=== PATIENT | female | born 1950 | race Caucasian/White ===

== ENCOUNTER → 2017-02-13 | Outpatient (CLI) | payer OTHER ==
[~2017-02-13] MED LIST: CALCTAB7 PO; MULT-513 PO; NRN100 PO; OMEP20CA9 PO
--- NOTE | 2017-02-13 15:43 | MAMMOGRAPHY REPORT ---
BILATERAL DIGITAL SCREENING MAMMOGRAM WITH CAD: 02/13/2017 CLINICAL HISTORY: Routine screening. Patient has no complaints. TECHNIQUE: Bilateral CC and MLO views were obtained. Current study was also evaluated with a Compute r Aided Detection (CAD) system. COMPARISON: Comparison is made to exams dated: 11/02/2014 mammogram, 07/21/2013 mammogram, 02/20/2010 ammogram - [facility], 02/17/2009, 08/26/2008, and 02/23/2008. BREAST COMPOSITION: There are scattered areas of fibroglandular density in both breasts. FINDINGS: No suspicious mass, architectural distortion or cluster of microcalcifications is seen. IMPRESSION: ACR BI-RADS CATEGORY 1: NEGATIVE There is no mammographic evidence of malignancy. A 1 year screening mammogram is recommended. The pa tient will receive written notification of the results. Approximately 10% of breast cancers are not detected with mammography. A negative mammographic report should not delay biopsy if a clinically suggestive mass is present. Shari Meza M.D. ay/:02/13/2017 14:10:53 Chainstitch Seat Joiner: Karena PEREZ(Curry)(Perez)([place]), [facility] letter sent: Normal 1/2 BI-RADS Code: ACR BI-RADS Category 1: Negative
== END | disposition home or self-care (01) ==
LOC: C.MAMM 13:34
PROVIDERS: ATTEND Internal Medicine
DX: Z12.31 Encounter for screening mammogram for malignant neoplasm of breast (principal)

== ENCOUNTER 2018-08-04 11:15 | Observation (INO) ==
[2018-08-04] MEDS ORDERED: ASPIRIN CHEW 324 MG PO STA (11:54)
[2018-08-04] MEDS ORDERED: NITROGLYCERIN SL 0.4 MG/TAB TAB SL STA (11:54)
[2018-08-04 12:10] LABS: Basophils # (auto) 0.07 K/uL (0-0.2); Basophils % (auto) 1.2 %; Eosinophils # (auto) 0.11 K/uL (0-0.5); Eosinophils % (auto) 1.9 %; Hematocrit (blood only) 44.2 % (37-47); Hemoglobin 14.8 g/dL (12.0-16.0); Immature Granulocytes # (auto) 0.01 K/uL (0.00-0.02); Immature Granulocytes % (auto) 0.2 %; Lymphocytes % (auto) 34.3 %; Mean Corpuscular Hgb Conc 33.5 g/dL (32-36); Mean Corpuscular Volume 88.9 fL (80-100); Mean Platelet Volume 10.7 fL (7.4-10.4); Monocytes # (auto) 0.28 K/uL (0.11-0.59); Monocytes % (auto) 4.8 %; Neutrophils # (auto) 3.36 K/uL (1.4-6.5); Neutrophils % (auto) 57.6 %; Platelet Count 198 K/uL (130-400); RDW Standard Deviation 42.3 fL (36.4-46.3); Red Blood Count 4.97 M/uL (4.2-5.4); White Blood Count 5.83 K/uL (4.8-10.8)
--- NOTE | 2018-08-04 12:12 | XRay Report ---
XR chest 1V portable CLINICAL HISTORY: Atypical chest pain COMPARISON STUDY: 07/31/2018 FINDINGS: The cardiac and mediastinal contours are normal. There is no evidence of focal pulmonary co nsolidation. There is no evidence of failure. No pleural effusions are visualized.[ IMPRESSION: No active disease in the chest. Electronically signed by: Moises Peña M.D. 08/04/2018 12:11 PM
[2018-08-04 12:24] LABS: Alanine Aminotransferase 20 U/L (12-78); Albumin Level 4.2 gm/dl (3.4-5.0); Aspartate Aminotransferase 14 U/L (15-37); BUN Creatinine Ratio 12.9 (10-20); Blood Urea Nitrogen 11 mg/dl (7-18); Calcium 8.7 mg/dl (8.5-10.1); Carbon Dioxide 30 mmol/L (21-32); Chloride 105 mmol/L (98-107); Creatinine Clr Calc Pharmacy 75.9 ml/min; Est GFR (African American) 81.6; Est GFR (Non-African American) 70.4; Glucose 77 mg/dl (70-99); Potassium 3.8 mmol/L (3.5-5.1); Sodium 139 mmol/L (136-145)
[2018-08-04 12:29] LABS: Albumin Globulin Ratio 1.2 (0.9-2); Alkaline Phosphatase 112 U/L (45-117); Bilirubin,Total 0.6 mg/dl (0.2-1); Creatine Kinase 56 U/L (26-192); Creatine Kinase MB < 1.0 ng/ml (0.5-3.6); Globulin 3.4 gm/dl (2.5-4.0); Total Protein 7.6 gm/dl (6.4-8.2); Troponin I < 0.015 ng/ml (0-0.045)
--- NOTE | 2018-08-04 13:50 | History & Physical Report ---
Date of Service August 04, 2018 Assessment & Plan (1) Chest pain: This is a 68yo F with a PMH of GERD, prediabetes and sciatica who presents with intermittent chest pain for the past several weeks. -Atypical presentation with hour-long chest pressure with radiation to bilateral shoulders -Had a normal stress test performed 6 years ago, no work up since -No history of HTN, HLD or DM II. + Family history of HD (father) -Hemodynamically stable, no EKG changes, CXR without acute abnormalities -Initial troponin negative. Continue trending -Discussed with cardiology. Will make NPO after midnight for exercise stress echo in AM (if trops remain negative x 3) -SL NTG and GI cocktail PRN pain -Fasting lipid panel and a1c in AM -Continue baby aspirin daily -Repeat EKG in am (2) Prediabetes: Most recent a1c of 5.1 in 2014. Repeat a1c pending (3) GERD (gastroesophageal reflux disease): Continue Ranitidine and omeprazole (4) Sciatica: Continue home dose Gabapentin and Mobic PRN pain DVT Ppx: SQ Lovenox Code status: FULL PCP: [facility] Dispo: Plan to return home once medically stable. Patient seen in collaboration with Dr. Dowell. Please see addendum. History of Present Illness Chief Complaint: chest pain Primary Care Provider: Milly Dowell MD This is a 68yo F with a PMH of GERD, prediabetes and sciatica who presents with intermittent chest pain for the past several weeks. Was evaluated in the ER last week and on-call technology risk intern recommended patient be observed overnight with stress test in the morning, but patient left the ER AMA. Was feeling well over the past few days until she experienced another episode of chest pain this morning while baking in her kitchen. Describes pain as left-sided chest pressure with radiation to bilateral shoulders, associated with shortness of breath, dizziness and nausea. Episodes lasted for an hour and then resolved. Denies history of coronary artery disease or previous NC. Underwent a normal stress test 6 years ago and was diagnosed with GERD at that time. Takes omeprazole regularly but was reportedly told to switch to Zantac in ER last week. Denies eating fatty or acidic foods and tries to limit caffeine. Takes Mobic PRN for sciatica. Father with history of coronary artery disease. Is a pre-diabetic with A1c of 5.1 in 2014. Denies fever, chills, lightheadedness, headache, chest pain, palpitations, SOB, wheezing, abdominal pain, nausea, vomiting, dysuria, diarrhea, constipation or lower extremity swelling. PCP is Dr. Dowell. Allergies Allergy/AdvReac Type Severity Reaction Status Date / Time No Known Allergies Allergy Unverified 08/04/18 11:57 Home Medications Home Medications Medication Instructions Recorded Confirmed Type calcium carbonate [Calcium 600] 600 mg PO DAILY 07/31/18 08/04/18 History gabapentin 100 mg PO QAM 07/31/18 08/04/18 History gabapentin 200 mg PO QPM 07/31/18 08/04/18 History meloxicam 7.5 mg PO DAILY PRN 07/31/18 08/04/18 History ranitidine HCl [Zantac] 150 mg PO BID #28 tab 07/31/18 08/04/18 Rx aspirin 81 mg PO DAILY 08/04/18 08/04/18 History omeprazole 20 mg PO DAILY 08/04/18 08/04/18 History Past Med/Surg History Medical History Prediabetes (Chronic) GERD (gastroesophageal reflux disease) (Chronic) Sciatica (Chronic) Surgical History H/O colonoscopy (Resolved) Family History Father Heart disease Mother Crohns disease Social History marital status: / Current Living Situation: Alone current occupational status: retired 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 Other Information That Helps Us Care for You: No Feels Safe at Home: Yes Smoking Status: Former smoker Hx Alcohol Use: Yes Alcohol type: wine Alcohol Intake Frequency: holidays/ special occasions only Hx Substance Use: No Beliefs That Will Affect Care: None Preferred Language: Albanian Review of Systems All systems reviewed & are unremarkable except as noted in HPI & below Physical Exam 2 Vital Signs (Past 24 Hours): Last Vital Signs Temp 36.7 C 08/04/18 11:20 Pulse 79 08/04/18 12:52 Resp 18 08/04/18 12:52 BP 131/79 08/04/18 12:52 Pulse Ox 98 08/04/18 12:52 Physical Exam: General Appearance: WD/WN, no apparent distress, reading a book Head: normocephalic, atraumatic Eyes: normal inspection, PERRL, EOMI ENT: hearing grossly normal, pharynx normal (moist mucous membranes) Neck: supple, no JVD, no adenopathy Respiratory/Chest: No chest wall tenderness to palpation. Lungs clear to auscultation. No wheezes, rales or rhonci. No respiratory distress or accessory muscle use Cardiovascular: regular rate, rhythm, no murmur, normal peripheral pulses Abdomen/GI: normal bowel sounds, soft, non-tender to palpation Extremities/Musculoskelatal: normal inspection, no calf tenderness, normal capillary refill, no pedal edema Neurologic/Psych: alert, normal mood/affect, oriented x 3 Skin: normal color, warm/dry Results & Data Laboratory Results Short CBC 08/04/18 Range/Units 11:39 WBC 5.83 (4.8-10.8) K/uL Hgb 14.8 (12.0-16.0) g/dL Hct 44.2 (37-47) % Plt Count 198 (130-400) K/uL BMP 08/04/18 11:39 Sodium 139 Potassium 3.8 Chloride 105 Carbon Dioxide 30 BUN 11 Creatinine 0.86 Glucose 77 Calcium 8.7 Cardiac Enzymes 08/04/18 Range/Units 11:39 Total Creatine Kinase 56 (26-192) U/L CK-MB (CK-2) < 1.0 (0.5-3.6) ng/ml Troponin I < 0.015 (0-0.045) ng/ml Liver Function 08/04/18 Range/Units 11:39 Total Bilirubin 0.6 (0.2-1) mg/dl AST 14 L (15-37) U/L ALT 20 (12-78) U/L Alkaline Phosphatase 112 (45-117) U/L Albumin 4.2 (3.4-5.0) gm/dl Diagnostic Findings CXR: IMPRESSION: No active disease in the chest. ECG Rhythm: normal sinus Code Status & VTE Plan Code Status FULL VTE Prophylaxis Plan VTE Prophylaxis will be ordered: Yes Supervising Physician Co-Signing Physician Notes I saw this patient with the physician medical administrative assistant, I participated in the history, physical, review of systems, and physical exam. I reviewed the medications with the patient and the physician medical administrative assistant and helped reconcile the medications. I helped take a detailed family and social history as well. I formulated the assessment and plan personally with the physician medical administrative assistant and went over it with the patient. _ (1) Chest pain Chest pain type: unspecified Ischemic chest pain type: Qualified Code(s): R07.9 - Chest pain, unspecified
[2018-08-04] MEDS ORDERED: POLYETHYLENE (MIRALAX) 17 GM PACK PO PRN (15:56)
[2018-08-04] MEDS ORDERED: ACETAMINOPHEN 325 MG TAB PO PRN (15:56)
[2018-08-04] MEDS ORDERED: ALUMINUM/MAGNESIUM SUSP 72 ML, LIDOCAINE HCL VISCOUS 2% 24 ML, BARCODE IDENTIFIER 1 EA PO PRN (15:56)
[2018-08-04] MEDS ORDERED: ONDANSETRON INJ 2 MG/ML 2 ML VIAL IV PRN (15:56)
[2018-08-04] MEDS ORDERED: MELOXICAM 7.5 MG TAB PO PRN (15:56)
[2018-08-04] MEDS ORDERED: NITROGLYCERIN SL 0.4 MG/TAB TAB SL PRN (15:56)
[2018-08-04] MEDS ORDERED: ENOXAPARIN INJ 40 MG/0.4 ML SYR SQ SCH (17:00)
[2018-08-04] MEDS ORDERED: GABAPENTIN 100 MG CAP PO SCH (21:00)
[2018-08-05 05:44] LABS: Hematocrit (blood only) 39.9 % (37-47); Hemoglobin 13.3 g/dL (12.0-16.0); Mean Corpuscular Hgb Conc 33.3 g/dL (32-36); Mean Corpuscular Volume 88.5 fL (80-100); Platelet Count 156 K/uL (130-400); RDW Coefficient of Variation 12.9 % (11.5-14.5); RDW Standard Deviation 41.3 fL (36.4-46.3); Red Blood Count 4.51 M/uL (4.2-5.4)
[2018-08-05 06:10] LABS: BUN Creatinine Ratio 15.6 (10-20); Calcium 8.7 mg/dl (8.5-10.1); Creatinine Clr Calc Pharmacy 72.3 ml/min; Est GFR (African American) 77.2; Est GFR (Non-African American) 66.6; Potassium 4.1 mmol/L (3.5-5.1)
[2018-08-05] MEDS ORDERED: CALCIUM 600MG + VIT D 400 IU TAB PO SCH (09:00)
[2018-08-05] MEDS ORDERED: ASPIRIN 81 MG ECTAB PO SCH (09:00)
[2018-08-05] MEDS ORDERED: GABAPENTIN 100 MG CAP PO SCH (09:00)
[2018-08-05] MEDS ORDERED: PANTOprazole 40 MG TAB PO SCH (09:00)
--- NOTE | 2018-08-06 07:05 | Emergency Department Note ---
Entered by Silke Holliday acting as a scribe for History of Present Illness General Chief complaint: Chest Pain Stated complaint: CHEST PAIN , DIFFICULT TO BREATH Time Seen by Provider: 08/04/18 11:31 Source: patient History of Present Illness Onset (ago): hour(s) 2 Location: chest Radiation: extremity (shoulder) Pain Consistency: + other (episode) Maximum Pain Intensity: 6 Quality: + other ("spiking") Associated symptoms: + denies other symptoms (abdominal pain), + shortness of breath and + other (dizziness) The patient is a 68 year old female who presents to the Emergency Room with complaints of an episode of chest pain starting 2 hours ago. The patient states that she was here 4 days ago with similar symptoms. She states that they wanted her to stay and have a stress test done. She reports that she did not want to stay as she wanted to go home and sleep and she doesnt sleep well in hospitals. She states that she felt fine when she went home and has until after breakfast today. She states that today she started having the chest pain again. She reports that shortly after it started she was short of breath and dizzy. She notes that she has noticed a spiking in her left shoulder. The patient denies abdominal pain. She notes that she did take a baby Aspirin this morning. She notes that after leaving her last visit she scheduled an appointment with her PCP for tomorrow. Home Medications Home Medications Medication Instructions Recorded Confirmed Type calcium carbonate [Calcium 600] 600 mg PO DAILY 07/31/18 08/04/18 History gabapentin 100 mg PO QAM 07/31/18 08/04/18 History gabapentin 200 mg PO QPM 07/31/18 08/04/18 History meloxicam 7.5 mg PO DAILY PRN 07/31/18 08/04/18 History ranitidine HCl [Zantac] 150 mg PO BID #28 tab 07/31/18 08/04/18 Rx aspirin 81 mg PO DAILY 08/04/18 08/04/18 History omeprazole 40 mg PO DAILY #30 cap 08/05/18 Rx Allergies Allergy/AdvReac Type Severity Reaction Status Date / Time No Known Allergies Allergy Unverified 08/04/18 11:57 Past Med/Surg History Medical History Prediabetes (Chronic) GERD (gastroesophageal reflux disease) (Chronic) Sciatica (Chronic) Surgical History H/O colonoscopy (Resolved) Family History Father Heart disease Mother Crohns disease Social History marital status: / Current Living Situation: Alone current occupational status: retired 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 and A total of 10 systems reviewed and were otherwise negative Physical Exam Vital Signs Vital Signs - 24 hr 08/05/18 07:21 08/05/18 12:09 08/05/18 13:06 Temperature 36.5 C 36.5 C Temperature Source Oral Pulse Rate 64 Pulse Rate [Left] 85 85 Respiratory Rate 18 18 Blood Pressure [Left Arm] 119/72 119/72 Blood Pressure [Right Arm] 116/76 Blood Pressure Mean [Left Arm] 87 Pulse Oximetry 96 96 GENERAL: Awake, alert, well-appearing, in no distress HENT: Normocephalic, atraumatic. Oropharynx unremarkable. EYES: Normal conjunctiva. Sclera non-icteric. NECK: Supple. No nuchal rigidity. FROM. No masses. RESPIRATORY: Clear to auscultation. No wheezes. No rales. Normal respiratory effort. CARDIAC: Normal rate. Normal rhythm. No murmurs. No rubs. Extremities warm and well perfused. Pulses equal. No JVD. GI: Soft, non-distended. No tenderness to palpation. No rebound or guarding. No masses. RECTAL: Deferred. MUSCULOSKELETAL: Atraumatic. Chest examination reveals no tenderness. The back is symmetrical on inspection without obvious abnormality. There is no CVA tenderness to palpation. No joint edema. LOWER EXTREMITIES: Calves are equal size bilaterally and non-tender. No edema. No discoloration. NEURO: Normal sensorium. No sensory or motor deficits noted. Course 1148: Past medical records reviewed. The patient was evaluated in room B7, and a complete history and physical examination were performed. 1237: I reviewed the patient's case with Vita Monroe PA-C- [facility] Hospitalist. She will evaluate the patient for further management. 1242: I reevaluated the patient and updated her on her test results. I discussed the treatment plan with her. She verbally agrees and understands. Consultations Consultation #1: [facility] She will evaluate the patient for further management. Time: 12:37 Administered Medications Discontinued Medications Aspirin (Aspirin) 243 mg PO NOW STA Stop: 08/04/18 11:55 Last Admin: 08/04/18 12:54 Dose: 243 mg Aspirin (Ecotrin Ectab) 81 mg PO DAILY STEVE Stop: 09/04/18 08:59 Last Admin: 08/05/18 08:06 Dose: 81 mg Enoxaparin Sodium (Lovenox) 40 mg SQ Q24H STEVE Stop: 09/03/18 16:59 Last Admin: 08/04/18 18:26 Dose: 40 mg Gabapentin (Neurontin) 200 mg PO QPM STEVE Stop: 09/03/18 20:59 Last Admin: 08/04/18 20:44 Dose: 200 mg Gabapentin (Neurontin) 100 mg PO QAM STEVE Stop: 09/04/18 08:59 Last Admin: 08/05/18 08:06 Dose: 100 mg Multivitamins/Minerals (Caltrate Plus) 1 tab PO DAILY STEVE Stop: 09/04/18 08:59 Last Admin: 08/05/18 08:06 Dose: 1 tab Nitroglycerin (Nitrostat) 0.4 mg SL NOW STA Stop: 08/04/18 11:55 Last Admin: 08/04/18 12:54 Dose: 0.4 mg Pantoprazole Sodium (Protonix) 40 mg PO QAM STEVE Stop: 09/04/18 08:59 Last Admin: 08/05/18 08:06 Dose: 40 mg Ranitidine HCl (Zantac) 150 mg PO BID STEVE Stop: 09/03/18 20:59 Last Admin: 08/05/18 08:05 Dose: 150 mg Admin: 08/04/18 20:43 Dose: 150 mg Medical Decision Making Differential Diagnosis Differential diagnosis: Etiologies such as shingles, musculoskeletal pain, pericarditis, myocarditis, cardiac ischemia, pericardial tamponade, pneumonia, pneumothorax, pleural effusion, hemothorax, pleurisy, aortic pathology, pulmonary embolism, intra- abdominal process, as well as others were considered. Medical Records Attestation: I reviewed the patient's medical records. Home Medications Current Medication List: was personally reviewed by me Laboratory Data Attestation: I reviewed the patient's lab results. Result diagrams: 08/05/18 05:32 08/05/18 05:32 Lab Results 08/04/18 08/04/18 08/04/18 Range/Units 11:39 11:39 11:39 WBC 5.83 (4.8-10.8) K/uL RBC 4.97 (4.2-5.4) M/uL Hgb 14.8 (12.0-16.0) g/dL Hct 44.2 (37-47) % MCV 88.9 (80-100) fL MCH 29.8 (25-34) pg MCHC 33.5 (32-36) g/dL RDW Std Deviation 42.3 (36.4-46.3) fL RDW Coeff of Iftikhar 13.0 (11.5-14.5) % Plt Count 198 (130-400) K/uL MPV 10.7 H (7.4-10.4) fL Immature Gran % (Auto) 0.2 % Neut % (Auto) 57.6 % Lymph % (Auto) 34.3 % Wayne % (Auto) 4.8 % Eos % (Auto) 1.9 % Baso % (Auto) 1.2 % Immature Gran # (Auto) 0.01 (0.00-0.02) K/uL Neut # (Auto) 3.36 (1.4-6.5) K/uL Lymph # (Auto) 2.00 (1.2-3.4) K/uL Wayne # (Auto) 0.28 (0.11-0.59) K/uL Eos # (Auto) 0.11 (0-0.5) K/uL Baso # (Auto) 0.07 (0-0.2) K/uL D-Dimer 420 (0-500) ug/L FEU Sodium 139 (136-145) mmol/L Potassium 3.8 (3.5-5.1) mmol/L Chloride 105 (98-107) mmol/L Carbon Dioxide 30 (21-32) mmol/L Anion Gap 4.0 (3-11) BUN 11 (7-18) mg/dl Creatinine 0.86 (0.6-1.2) mg/dl Est Cr Clr Drug Dosing 75.9 ml/min Est GFR ( Amer) 81.6 Est GFR (Non-Af Amer) 70.4 BUN/Creatinine Ratio 12.9 (10-20) Glucose 77 (70-99) mg/dl Calcium 8.7 (8.5-10.1) mg/dl Total Bilirubin 0.6 (0.2-1) mg/dl AST 14 L (15-37) U/L ALT 20 (12-78) U/L Alkaline Phosphatase 112 (45-117) U/L Total Creatine Kinase 56 (26-192) U/L CK-MB (CK-2) < 1.0 (0.5-3.6) ng/ml CK/CKMB % Calc TNP Troponin I < 0.015 (0-0.045) ng/ml Total Protein 7.6 (6.4-8.2) gm/dl Albumin 4.2 (3.4-5.0) gm/dl Globulin 3.4 (2.5-4.0) gm/dl Albumin/Globulin Ratio 1.2 (0.9-2) Lipase 97 (73-393) U/L Hepatitis C Ab Screen (Neg) 08/04/18 08/04/18 08/05/18 Range/Units 17:29 23:40 05:32 WBC (4.8-10.8) K/uL RBC (4.2-5.4) M/uL Hgb (12.0-16.0) g/dL Hct (37-47) % MCV (80-100) fL MCH (25-34) pg MCHC (32-36) g/dL RDW Std Deviation (36.4-46.3) fL RDW Coeff of Iftikhar (11.5-14.5) % Plt Count (130-400) K/uL MPV (7.4-10.4) fL Immature Gran % (Auto) % Neut % (Auto) % Lymph % (Auto) % Wayne % (Auto) % Eos % (Auto) % Baso % (Auto) % Immature Gran # (Auto) (0.00-0.02) K/uL Neut # (Auto) (1.4-6.5) K/uL Lymph # (Auto) (1.2-3.4) K/uL Wayne # (Auto) (0.11-0.59) K/uL Eos # (Auto) (0-0.5) K/uL Baso # (Auto) (0-0.2) K/uL D-Dimer (0-500) ug/L FEU Sodium (136-145) mmol/L Potassium (3.5-5.1) mmol/L Chloride (98-107) mmol/L Carbon Dioxide (21-32) mmol/L Anion Gap (3-11) BUN (7-18) mg/dl Creatinine (0.6-1.2) mg/dl Est Cr Clr Drug Dosing ml/min Est GFR ( Amer) Est GFR (Non-Af Amer) BUN/Creatinine Ratio (10-20) Glucose (70-99) mg/dl Calcium (8.5-10.1) mg/dl Total Bilirubin (0.2-1) mg/dl AST (15-37) U/L ALT (12-78) U/L Alkaline Phosphatase (45-117) U/L Total Creatine Kinase (26-192) U/L CK-MB (CK-2) (0.5-3.6) ng/ml CK/CKMB % Calc Troponin I < 0.015 < 0.015 (0-0.045) ng/ml Total Protein (6.4-8.2) gm/dl Albumin (3.4-5.0) gm/dl Globulin (2.5-4.0) gm/dl Albumin/Globulin Ratio (0.9-2) Lipase (73-393) U/L Hepatitis C Ab Screen Neg (Neg) 08/05/18 08/05/18 Range/Units 05:32 05:32 WBC 6.10 (4.8-10.8) K/uL RBC 4.51 (4.2-5.4) M/uL Hgb 13.3 (12.0-16.0) g/dL Hct 39.9 (37-47) % MCV 88.5 (80-100) fL MCH 29.5 (25-34) pg MCHC 33.3 (32-36) g/dL RDW Std Deviation 41.3 (36.4-46.3) fL RDW Coeff of Iftikhar 12.9 (11.5-14.5) % Plt Count 156 (130-400) K/uL MPV 10.0 (7.4-10.4) fL Immature Gran % (Auto) % Neut % (Auto) % Lymph % (Auto) % Wayne % (Auto) % Eos % (Auto) % Baso % (Auto) % Immature Gran # (Auto) (0.00-0.02) K/uL Neut # (Auto) (1.4-6.5) K/uL Lymph # (Auto) (1.2-3.4) K/uL Wayne # (Auto) (0.11-0.59) K/uL Eos # (Auto) (0-0.5) K/uL Baso # (Auto) (0-0.2) K/uL D-Dimer (0-500) ug/L FEU Sodium 141 (136-145) mmol/L Potassium 4.1 (3.5-5.1) mmol/L Chloride 108 H (98-107) mmol/L Carbon Dioxide 29 (21-32) mmol/L Anion Gap 4.0 (3-11) BUN 14 (7-18) mg/dl Creatinine 0.90 (0.6-1.2) mg/dl Est Cr Clr Drug Dosing 72.3 ml/min Est GFR ( Amer) 77.2 Est GFR (Non-Af Amer) 66.6 BUN/Creatinine Ratio 15.6 (10-20) Glucose 93 (70-99) mg/dl Calcium 8.7 (8.5-10.1) mg/dl Total Bilirubin (0.2-1) mg/dl AST (15-37) U/L ALT (12-78) U/L Alkaline Phosphatase (45-117) U/L Total Creatine Kinase (26-192) U/L CK-MB (CK-2) (0.5-3.6) ng/ml CK/CKMB % Calc Troponin I (0-0.045) ng/ml Total Protein (6.4-8.2) gm/dl Albumin (3.4-5.0) gm/dl Globulin (2.5-4.0) gm/dl Albumin/Globulin Ratio (0.9-2) Lipase (73-393) U/L Hepatitis C Ab Screen (Neg) Imaging Data Radiologist's Impression: Radiology results as stated below per my review and the radiologist's interpretation: XR chest 1V portable CLINICAL HISTORY: Atypical chest pain COMPARISON STUDY: 07/31/2018 FINDINGS: The cardiac and mediastinal contours are normal. There is no evidence of focal pulmonary consolidation. There is no evidence of failure. No pleural effusions are visualized.[ IMPRESSION: No active disease in the chest. Electronically signed by: Moises Peña M.D. 08/04/2018 12:11 PM ECG Data Attestation: I personally reviewed and interpreted this ECG as follows: Indication: chest pain Rate (beats per minute): 72 Rhythm: normal sinus Findings: + T-wave inversion (anterior leads); no ST depression and no ST elevation Comparison ECG Date: from (07/31/2018) Change: no significant change Blood Pressure Blood Pressure Findings: Elevated blood pressure Blood Pressure Disposition: further management by hospitalist MDM Narrative This is a 68-year-old female who presents back to the emergency department after requesting to be discharged several days ago. At that time the patient was consulted with cardiology and was felt that she should be admitted due to the nature of her chest pain. She returns after her chest pain recurred. She has a normal EKG as well as CK-MB and troponin here in the emergency department. I did contact the hospitalist who admitted the patient. Patient was in agreement with the treatment plan. Impression & Plan Chest pain Discharge Plan Visit Data *Final* Discharge Date/Time: 08/04/18 14:53 Chief Complaint: Chest Pain Stated Complaint: CHEST PAIN , DIFFICULT TO BREATH ED Provider: Fito Walker Discharge Problem: Chest pain Patient Disposition: Admitted As Inpatient Condition: Good Discharge Instructions Interventions: ED Discharge Assessment Last Done: 08/04/18 14:53 The scribe's documentation has been prepared under my direction and personally reviewed by me in its entirety. I confirm that the note above accurately reflects all work, treatment, procedures, and medical decision making performed by me.
--- NOTE | 2018-08-09 12:01 | Discharge Summary ---
Date of Service August 09, 2018 Admission HPI Per Admitting Provider This is a 68yo F with a PMH of GERD, prediabetes and sciatica who presents with intermittent chest pain for the past several weeks. Was evaluated in the ER last week and on-call pullboat engineer recommended patient be observed overnight with stress test in the morning, but patient left the ER AMA. Was feeling well over the past few days until she experienced another episode of chest pain this morning while baking in her kitchen. Describes pain as left-sided chest pressure with radiation to bilateral shoulders, associated with shortness of breath, dizziness and nausea. Episodes lasted for an hour and then resolved. Denies history of coronary artery disease or previous NC. Underwent a normal stress test 6 years ago and was diagnosed with GERD at that time. Takes omeprazole regularly but was reportedly told to switch to Zantac in ER last week. Denies eating fatty or acidic foods and tries to limit caffeine. Takes Mobic PRN for sciatica. Father with history of coronary artery disease. Is a pre-diabetic with A1c of 5.1 in 2014. Denies fever, chills, lightheadedness, headache, chest pain, palpitations, SOB, wheezing, abdominal pain, nausea, vomiting, dysuria, diarrhea, constipation or lower extremity swelling. PCP is Dr. Dowell. Principal Diagnosis Atypical chest pain Discharge Data Allergies Allergy/AdvReac Type Severity Reaction Status Date / Time No Known Allergies Allergy Unverified 08/04/18 11:57 Consultations 08/04/18 12:38 ED Decision to Admit Stat Hospital Course (1) Chest pain: (2) Prediabetes: (3) GERD (gastroesophageal reflux disease): (4) Sciatica: She was admitted to the hospitalist service and serial troponins were negative overnight. No acute events on telemetry were noted. The following day she underwent a debridement stress echocardiogram revealing no ischemia and no arrhythmias. EF was notably 60-65% and there were no left ventricular wall motion abnormalities. There was no significant valvular pathology. She was discharged in stable condition with close primary care follow-up. Her atypical chest pain was considered likely secondary to acid reflux and she was sent home on an increased dose of omeprazole to 40 mg p.o. daily. Total Time Total Time Spent Total Time Spent (In Minutes): 60 Total Time Includes: Examination of the Patient, Discharge Planning, Medication Reconciliation and Communication With Other Providers Discharge Plan Discharge Items Patient Disposition: Home - Self-Care Reason For Visit: CHEST PAIN Discharge Diagnosis: Atypical chest pain Condition: Good Discharge Goals: Decrease discomfort Activity: Resume your previous activity Non-emergency contact: Primary Care Provider Call non-emergency contact if: you have any medication questions, your symptoms worsen, your pain is not controlled, your pain is worsening, your pain is unusual for you, your pain is concerning for you and you have a fever Follow-up/Referrals: Milly Dowell MD [Primary Care Provider] - Diet: Heart Healthy Addtl Provider Instructions: Please take all medications as instructed on discharge list below. It is recommended that you follow-up with your primary care provider within one week of discharge. PRIMARY CARE: 08/12/2018 10:00 AM Provider Milly Dowell MD Department General Internal Medicine [facility] It was a pleasure taking care of you! Please call if you have any questions or problems. You can reach a [facility] hospitalist on duty at 24 hours a day by calling [phone]. Take care of yourself. Soraya Anthony DO [facility] Prescriptions: New omeprazole 40 mg capsule,delayed release(DR/EC) 40 mg PO DAILY Qty: 30 RF: 3 Continue meloxicam 7.5 mg tablet 7.5 mg PO DAILY PRN (Reason: Pain) RF: 0 calcium carbonate [Calcium 600] 600 mg calcium (1,500 mg) Tablet 600 mg PO DAILY RF: 0 gabapentin 100 mg capsule 200 mg PO QPM RF: 0 gabapentin 100 mg capsule 100 mg PO QAM RF: 0 ranitidine HCl [Zantac] 150 mg tablet 150 mg PO BID Qty: 28 RF: 0 aspirin 81 mg Tablet,Delayed Release (Dr/Ec) 81 mg PO DAILY RF: 0 Discontinued omeprazole 20 mg capsule,delayed release(DR/EC) 20 mg PO DAILY RF: 0 Stand-Alone Forms: My [facility] [address] Discharge Orders: Discharge Order (Routine); Ordered 08/05/18 Ordered By: Soraya Anthony Admission Data Admit Date/Time: 08/04/18 13:43 Attending Provider: Soraya Anthony Admit Provider: Soren Wilson Primary Care Provider: Milly Dowell Other Providers: Soren Wilson Service: Telemetry Other Interventions: Discharge Summary Assessment (RN) Last Done: 08/05/18 13:06 DC Date/Time DO NOT enter until pt leaves facility: 08/05/18 13:41
== END 2018-08-05 13:41 | disposition home or self-care (01) ==
LOC: ED 11:15 → 2S 11:15